=== PATIENT | male | born 1985 | race Caucasian/White ===

== ENCOUNTER 2019-10-30 12:56 | Inpatient (IN) ==
--- NOTE | 2019-10-30 14:01 | DR.FEVERAD ---
HPI Time seen Time Seen by Provider: 10/30/19 14:00 PCP Primary Care Physician: RADHA HPI Comment HPI Comment: HISTORY BELOW. Complaints/Symptoms Chief Complaint Doctor Comments: GENERALIZED WEAKNESS, HEADACHE AND FEVER TIMES ONE WEEK. CURRENTLY ON DOXYCYCLINE AND IS BEING CHECK FOR LYMES DISEASE. TODAY WEAK AND WORSE. 5.10 ACHING THROBBING PAIN.TOOK MEDICATION FOR FEVER BEFORE COMING. HE IS TIRED AND SLEEPY. Chief Complaint:: PT C/O WEAKNESS, FEVER, HEADACHE FOR APPROX 1 WEEK. PT STATES HE HAS BEEN BEING TREATED FOR LYME DISEASE, BUT HE IS NOT GETTING ANY BETTER. PT STATES ALL HE IS WANTING TO DO IS SLEEP HE HAS NOT ENERGY FOR ANYTHING. COVID-19 Coronavirus risk:travel/contact w/high risk person: No Has patient experienced Coronavirus symptoms: Yes Coronavirus symptoms experienced: Fever Source History Provided: Patient Mode of Arrival Mode of Arrival: Ambulatory Timing Onset of Chief Complaint: 10/23/19 Came on: Suddenly Duration Duration: Constant Duration: Days Severity Fever Severity/Quality: greater than 100.5 F Context Recent: Antibiotic Symptoms: Fever, Cough and SOB History of: None Modifying factors Modifying factors: Tylenol Associated signs and symptoms Associated signs and symptoms: Weakness, Myalgia and Headache PMH PMH Past Medical History: No Past Surgical History: No Family History History of Family Medical Conditions: No Social History Does patient currently use any type of tobacco product: Yes Have you used tobacco products in the last 12 months: Yes Type of Tobacco Use: Cigarettes Does any household member use tobacco: Yes Alcohol Use: Rarely Do you use any recreational Drugs:: No Lives With: Family Lives Where: Home Travel Risk Coronavirus risk:travel/contact w/high risk person: No Has patient experienced Coronavirus symptoms: Yes Coronavirus symptoms experienced: Fever Infectious screening In the last 2 months have you had wt loss of >10#?: NO Have you had fever, night sweats or hemotysis?: Yes Have you traveled outside the country in the last 6 months?: No Isolation: Droplet ROS Review of Systems Constitutional: See HPI, Diaphoresis, Fever, Weakness and Fatigue Eyes: No Symptoms Reported and See HPI; negative Blurred Vision ENTM: See HPI and Nose Congestion; negative Ear Pain, Nose Discharge and Throat Pain Respiratoy: Non-Productive Cough and Short of Breath; negative Wheezing Cardiovascular: No Symptoms Reported and See HPI; negative Chest Pain and Edema Gastrointestinal/Abdominal: No Symptoms Reported and See HPI; negative Abdominal Pain, Diarrhea and Vomiting Genitourinary: No Symptoms Reported; negative Dysuria, Frequency and Hematuria Neurological: Headache and Weakness; negative Dizziness Musculoskeletal: See HPI and Muscle Pain; negative Back Pain Integumentary: Dryness; negative Change in Color, Rash and Juandice Hematologic/Lymphatic: No Symptoms Reported and See HPI; negative Easy Bruising and Swollen Glands Endocrine: No Symptoms Reported and See HPI; negative Increased Thirst and Increased Urine Psychiatric: No Symptoms Reported and See HPI All Other Systems: Reviewed and Negative PE Vital Signs Vitals: Temperature 98.0 F Pulse Rate 83 Respiratory Rate 18 Blood Pressure 131/75 O2 Sat by Pulse Oximetry 97 General Limitations: No Limitations General Appearance: Alert and In Distress Head Head Exam: Normal Inspection and Atraumatic Eyes Eye exam: Normal Appearance, PERRL and EOMI; negative Scleral Icterus and Conjunctival Injection ENT ENT Exam: Normal Exam, Normal Oropharynx, Normal External Ear Exam and TM's Normal Bilaterally External Ear Exam: Normal External Inspection; negative Mastoid Tenderness TM/Canal Exam: Bilateral: Normal Nose Exam: negative Sinus Tenderness, Nasal Deviation and Septal Hematoma Mouth Exam: Lip Swelling and Tongue Swelling Teeth Exam: Dental Caries; negative Dental Tenderness # and Gingival Swelling Throat Exam: Normal Inspection and L Peritonsillar Mass; negative Tonsillar Erythema, Tonsillomegaly and Tonsillar Exudate Neck Neck Exam: Normal Inspection and Trachea Midline; negative Tenderness and Lymphadenopathy Respiratory Respiratory Exam: Normal Lung Sounds Bilat and Respiratory Distress; negative Accessory Muscle Use and Chest Wall Tenderness Respiratory Exam: Bilateral: Rhonchi and Lower: Rhonchi Cardiovascular Cardiovascular Exam: Regular Rate, Normal Rhythm and Normal Heart Sounds; negative Systolic Murmur and Diastolic Murmur Abdominal Exam Abdominal Exam: Normal Inspection and Soft; negative Tenderness Extremities Extremities Exam: Normal Inspection and Normal Capillary Refill; negative Tenderness, Edema and Calf Tenderness Back Back Exam: negative (R) CVA Tenderness and (L) CVA Tenderness Neurologic Neurological Exam: Alert, Oriented X3 and CN II-XII Intact; negative Motor Sensory Deficit Psychiatric Psychiatric Exam: Normal Mood; negative Normal Affect Skin Skin Exam: Dry MDM Differential Diagnosis Differential Diagnosis: CVA, Dehydration, Electrolyte disorder, Pneumonia, Pyelonephritis, UTI and Viral syndrome COURSE Treatment Treatment: SEE ORDERS. Consultation Consultation Comments: DISCUSSED PATIENT WITH DR. MORGAN. HE WILL ADMIT PATIENT. Education/Counseling Education/Counseling: Patient Educated On: Diagnosis ROR Labs Reviewed Laboratory Results Reviewed?: Yes Result Diagrams: 11/01/19 05:38 11/01/19 05:38 Laboratory: 10/30/19 15:30 Blood Blood Culture - Preliminary 10/30/19 15:15 Blood Blood Culture - Preliminary WBC 5.1 X10^3/uL (3.6-10.0) 10/30/19 14:30 RBC 4.56 X10^6/uL (4.7-6.0) L 10/30/19 14:30 Hgb 13.5 g/dL (13.5-18.0) 10/30/19 14:30 Hct 39.2 % (42.0-54.0) L 10/30/19 14:30 MCV 85.9 fL (80.0-100.0) 10/30/19 14:30 MCH 29.5 pg (27.0-34.0) 10/30/19 14:30 MCHC 34.3 g/dL (33.0-35.0) 10/30/19 14:30 RDW 13.9 % (11.6-16.5) 10/30/19 14:30 Plt Count 267 X10^3/uL (150.0-450.0) 10/30/19 14:30 MPV 7.0 fL (7.4-11.0) L 10/30/19 14:30 Neut % (Auto) 34.4 % (42.0-75.0) L 10/30/19 14:30 Lymph % (Auto) 56.2 % (21.0-51.0) H 10/30/19 14:30 [place] % (Auto) 7.8 % (0.0-13.0) 10/30/19 14:30 Eos % (Auto) 0.7 % (0.9-2.9) L 10/30/19 14:30 Baso % (Auto) 0.9 % (0.2-1.0) 10/30/19 14:30 Neut # (Auto) 1.7 x10^3/uL (2.2-4.8) L 10/30/19 14:30 Lymph # (Auto) 2.9 X10^3/uL (1.3-2.9) 10/30/19 14:30 [place] # (Auto) 0.4 x10^3/uL (0.3-0.8) 10/30/19 14:30 Eos # (Auto) 0.0 x10^3/uL (0.0-0.2) 10/30/19 14:30 Baso # (Auto) 0.0 X10^3/uL (0.0-0.1) 10/30/19 14:30 Absolute Nucleated RBC 0.3 /100WBC 10/30/19 14:30 Sample Site Lrad 10/30/19 15:45 ABG pH 7.440 (7.35-7.45) 10/30/19 15:45 ABG pCO2 42.0 mmHg (35.0-45.0) 10/30/19 15:45 ABG pO2 104.0 mmHg (80.0-100.0) H 10/30/19 15:45 ABG HCO3 28.5 mmol/L (22-26) H 10/30/19 15:45 ABG O2 Saturation 98.0 % (90-100) 10/30/19 15:45 ABG Base Excess 3.9 mmol/L (-2.0-2.0) H 10/30/19 15:45 Genaro Test Pos 10/30/19 15:45 A-a Gradient -7.0 mmHg 10/30/19 15:45 FiO2 21.0 10/30/19 15:45 Blood Gas Comments Pt maverick well elj 10/30/19 15:45 Sodium 139 mmol/L (136-145) 10/30/19 14:30 Corrected Sodium TNP 10/30/19 14:30 Potassium 3.9 mmol/L (3.5-5.1) 10/30/19 14:30 Chloride 101 mmol/L (98-107) 10/30/19 14:30 Carbon Dioxide 29.9 mmol/L (21-32) 10/30/19 14:30 BUN 8 mg/dL (7-18) 10/30/19 14:30 Creatinine 1.04 mg/dL (0.70-1.30) 10/30/19 14:30 Est GFR (MDRD) Af Amer > 60 (>60) 10/30/19 14:30 Est GFR (MDRD) Non-Af > 60 (>60) 10/30/19 14:30 Glucose 100 mg/dL (65-99) H 10/30/19 14:30 Lactic Acid 0.8 mmol/L (0.4-2.0) 10/30/19 15:15 Calcium 9.0 mg/dL (8.5-10.1) 10/30/19 14:30 Corrected Calcium TNP 10/30/19 14:30 Magnesium 2.1 mg/dL (1.7-2.9) 10/30/19 14:30 Total Bilirubin 1.20 mg/dL (0.2-1.0) H 10/30/19 14:30 AST 52 Units/L (15-37) H 10/30/19 14:30 ALT 96 Units/L (12-78) H 10/30/19 14:30 Alkaline Phosphatase 131 Units/L (46-116) H 10/30/19 14:30 Total Protein 8.7 g/dL (6.4-8.2) H 10/30/19 14:30 Albumin 4.3 g/dL (3.4-5.0) 10/30/19 14:30 Globulin 4.4 g/dL (2.5-4.5) 10/30/19 14:30 Albumin/Globulin Ratio 1.0 Ratio (1.1-2.1) L 10/30/19 14:30 RSV Nasal Swab Negative (NEGATIVE) 10/30/19 14:25 Influenza Type A Ag Negative-presumptive (NEGATIVE) 10/30/19 14:25 Influenza Type B Ag Negative-presumptive (NEGATIVE) 10/30/19 14:25 SARS-CoV-2 (PCR) Negative (NEGATIVE) 10/30/19 16:21 S. pyogenes (TEM-PCR) Not detected (NOT DETECT) 10/30/19 14:25 Miscellaneous Test Cancelled 10/30/19 14:25 XRAY XRAY Interpreted by: Radiologist (report noted and discussed with patient.) and Self Opioid Opioid Risk Tool Age (David box if 16-45): Yes History of Preadolescent Sexual Abuse: No Total: 1 Total Score Risk Category: Low Risk Copyright: [facility] predicting aberrant behaviors Diagnosis Discharge Problem: Fever, Headache Pneumonia Qualifiers: Pneumonia type: due to unspecified organism Laterality: bilateral Lung location: lower lobe of lung Qualified Code(s): J18.9 - Pneumonia, unspecified organism
[2019-10-30] MEDS ORDERED: NS 1000 ML 1,000 ML IV ONE (14:16)
[2019-10-30] MEDS ORDERED: NS 1000 ML 1,000 ML ONE (14:17)
--- NOTE | 2019-10-30 14:42 | RAD ---
CHEST, 1 VIEWHISTORY: Weakness, fever, headache.Study: Single view of the chest.Comparison:NoneFindings:The cardiomediastinal silhouette is normal.There may be some subtle interstitial and early airspace opacities involving the infrahilar regions bilaterally. Osseous structures demonstrate no acute abnormality.IMPRESSION:1. Probable subtle interstitial and early alveolar opacities in the bilateral perihilar/infrahilar regions. Acute atypical infection cannot be excluded.Electronically signed by: ADAM SCHROEDER (October 30, 2019 14:40:58)
[2019-10-30 14:48] LABS: BASOPHILS % (AUTO) 0.9 % (0.2-1.0); EOSINOPHILS % (AUTO) 0.7 % (0.9-2.9); HEMATOCRIT 39.2 % (42.0-54.0); HEMOGLOBIN 13.5 g/dL (13.5-18.0); LYMPHOCYTES # (AUTO) 2.9 X10^3/uL (1.3-2.9); LYMPHOCYTES % (AUTO) 56.2 % (21.0-51.0); MEAN CORPUSCULAR HEMOGLOBIN 29.5 pg (27.0-34.0); MEAN CORPUSCULAR HGB CONC 34.3 g/dL (33.0-35.0); MEAN CORPUSCULAR VOLUME 85.9 fL (80.0-100.0); MONOCYTES # (AUTO) 0.4 x10^3/uL (0.3-0.8); MONOCYTES % (AUTO) 7.8 % (0.0-13.0); NEUTROPHILS # (AUTO) 1.7 x10^3/uL (2.2-4.8); NEUTROPHILS % (AUTO) 34.4 % (42.0-75.0); PLATELET COUNT 267 X10^3/uL (150.0-450.0); RED BLOOD COUNT 4.56 X10^6/uL (4.7-6.0); RED CELL DISTRIBUTION WIDTH 13.9 % (11.6-16.5); WHITE BLOOD COUNT 5.1 X10^3/uL (3.6-10.0)
[2019-10-30 14:59] LABS: ALANINE AMINOTRANSFERASE 96 Units/L (12-78); ALBUMIN 4.3 g/dL (3.4-5.0); ALKALINE PHOSPHATASE 131 Units/L (46-116); ASPARTATE AMINO TRANSFERASE 52 Units/L (15-37); BLOOD UREA NITROGEN 8 mg/dL (7-18); CARBON DIOXIDE 29.9 mmol/L (21-32); CHLORIDE 101 mmol/L (98-107); CREATININE 1.04 mg/dL (0.70-1.30); SODIUM 139 mmol/L (136-145); TOTAL PROTEIN 8.7 g/dL (6.4-8.2); eGFR NON BLACK RACES > 60 (>60)
[2019-10-30] MEDS ORDERED: TORADOL 30 MG VIAL IVP ONE (15:01)
[2019-10-30 15:02] LABS: RSV AG DETECTION NEGATIVE (NEGATIVE)
[2019-10-30] MEDS ORDERED: ROCEPHIN VIAL 1 GRAM 1 G in NS 100 ML IV + SPIKE MINIBAG* 100 ML IV ONE (15:03)
[2019-10-30] MEDS ORDERED: TORADOL 30 MG VIAL ONE (15:32)
[2019-10-30] MEDS ORDERED: NS 100 ML IV + SPIKE MINIBAG* 100 ML IV ONE (15:32)
[2019-10-30] MEDS ORDERED: ROCEPHIN VIAL 1 GRAM ONE (15:33)
[2019-10-30 15:54] LABS: ABG BASE EXCESS 3.9 mmol/L (-2.0-2.0); ABG HCO3 28.5 mmol/L (22-26)
[2019-10-30 15:55] LABS: ABG ALLEN TEST POS
--- NOTE | 2019-10-30 16:01 | CT ---
HISTORYheadachesSTUDYCT brain without contrastCOMPARISONnoneTECHNIQUEMultiple axial images of the brain were obtained from the skull base to the vertex [without] administration of IV contrast.Dose reduction techniques including Automated Exposure Control (AEC) and adjustment of mA and kV were utlized.FINDINGS[No acute intraparenchymal hemorrhage or mass can be identified.] [No extra-axial fluid collections are seen.] [No alteration in the attenuation of the brain parenchyma can be identified to suggest acute or subacute ischemic change.] [The ventricular system is symmetric and nondilated.] [The extracranial structures are grossly unremarkable.]IMPRESSION[No acute intracranial process can be identified.]Electronically signed by: SONG PALMER (October 30, 2019 16:00:12)
[2019-10-30] MEDS ORDERED: TYLENOL 325 MG TAB PO PRN (16:40)
[2019-10-30] MEDS ORDERED: SALINE 3% 15 ML NEB TX NEB ONE (19:09)
[2019-10-30] MEDS ORDERED: TUSSIONEX PENNKINETIC SUSP PO PRN (19:24)
[2019-10-30] MEDS ORDERED: NS 1000 ML 1,000 ML IV SCH (19:24)
[2019-10-30] MEDS ORDERED: ASCORBIC ACID INJ MULTI-DOSE VIAL IV SCH (19:24)
[2019-10-30] MEDS ORDERED: PROVENTIL NEB TX 0.083% 2.5MG/ 3ML NEB PRN (19:29)
[2019-10-30] MEDS ORDERED: NS 1/2 1000 ML IV 1,000 ML IV ONE (19:41)
[2019-10-30 19:43] VITALS: BMI 29.1
[2019-10-30] MEDS: NS 1/2 1000 ML IV 1,000 ML IV SCH (19:46)
[2019-10-30] MEDS ORDERED: NS 100 ML IV 200 ML IV ONE (20:36)
[2019-10-30] MEDS: TORADOL 30 MG VIAL IVP PRN (20:43)
[2019-10-30] MEDS ORDERED: VENTOLIN or PROAIR HFA IN SCH (21:00)
[2019-10-30] MEDS: ROBITUSSIN DM PO SCH ×2 (21:01→21:02)
[2019-10-30] MEDS: THIAMINE HCL INJ IM SCH (21:02)
[2019-10-30] MEDS: ASCORBIC ACID INJ MULTI-DOSE VIAL 1,500 MG in NS 100 ML IV 100 ML IV SCH (21:02)
[2019-10-30] MEDS: PLAQUENIL PO SCH (21:03)
[2019-10-30] MEDS: ZINC SULFATE PO SCH (21:03)
[2019-10-30] MEDS: VIBRAMYCIN 100 MG in D5W 250 ML IV 250 ML IV SCH (21:40)
[2019-10-30 22:36] LABS: BILIRUBIN,URINE NEGATIVE (NEGATIVE); BLOOD/HEMOGLOBIN,URINE NEGATIVE (NEGATIVE); GLUCOSE, URINE NEGATIVE (NEGATIVE); KETONES,URINE NEGATIVE (NEGATIVE); LEUKOCYTE ESTERASE ,URINE NEGATIVE (NEGATIVE); NITRITES,URINE NEGATIVE (NEGATIVE); PROTEIN,URINE NEGATIVE (NEGATIVE); UROBILINOGEN,URINE NORMAL (NORMAL)
[2019-10-30 22:39] LABS: APPEARANCE,URINE CLEAR (CLEAR); COLOR,URINE YELLOW (YELLOW)
[2019-10-30] MEDS ORDERED: VISTARIL PO ONE (22:39)
[2019-10-30] MEDS: VISTARIL PO PRN (22:43)
[2019-10-31] MEDS: ASCORBIC ACID INJ MULTI-DOSE VIAL 1,500 MG in NS 100 ML IV 100 ML IV SCH ×4 (03:06→20:46)
[2019-10-31] MEDS: TORADOL 30 MG VIAL IVP PRN (03:06)
[2019-10-31] MEDS: PLAQUENIL PO SCH ×3 (05:47→20:59)
[2019-10-31 06:10] LABS: ALANINE AMINOTRANSFERASE 76 Units/L (12-78); ALBUMIN 3.2 g/dL (3.4-5.0); ALKALINE PHOSPHATASE 95 Units/L (46-116); ASPARTATE AMINO TRANSFERASE 44 Units/L (15-37); BLOOD UREA NITROGEN 6 mg/dL (7-18); CALCIUM 8.1 mg/dL (8.5-10.1); CARBON DIOXIDE 29.8 mmol/L (21-32); CHLORIDE 103 mmol/L (98-107); COR CA(FOR HYPOALB) 8.7 mg/dL (8.5-10.1); CREATININE 0.85 mg/dL (0.70-1.30); SODIUM 139 mmol/L (136-145); TOTAL PROTEIN 6.6 g/dL (6.4-8.2); eGFR NON BLACK RACES > 60 (>60)
[2019-10-31 06:17] LABS: BASOPHILS % (AUTO) 0.6 % (0.2-1.0); EOSINOPHILS # (AUTO) 0.1 x10^3/uL (0.0-0.2); EOSINOPHILS % (AUTO) 1.1 % (0.9-2.9); HEMATOCRIT 30.7 % (42.0-54.0); HEMOGLOBIN 10.7 g/dL (13.5-18.0); LYMPHOCYTES # (AUTO) 3.5 X10^3/uL (1.3-2.9); LYMPHOCYTES % (AUTO) 57.9 % (21.0-51.0); MEAN CORPUSCULAR HEMOGLOBIN 29.8 pg (27.0-34.0); MEAN CORPUSCULAR HGB CONC 34.8 g/dL (33.0-35.0); MEAN CORPUSCULAR VOLUME 85.6 fL (80.0-100.0); MEAN PLATELET VOLUME 7.1 fL (7.4-11.0); MONOCYTES # (AUTO) 0.6 x10^3/uL (0.3-0.8); MONOCYTES % (AUTO) 9.2 % (0.0-13.0); NEUTROPHILS # (AUTO) 1.9 x10^3/uL (2.2-4.8); NEUTROPHILS % (AUTO) 31.2 % (42.0-75.0); PLATELET COUNT 244 X10^3/uL (150.0-450.0); RED BLOOD COUNT 3.59 X10^6/uL (4.7-6.0)
[2019-10-31 07:11] LABS: PLATELET MORPHOLOGY COMMENT NORMAL (NORMAL)
[2019-10-31] MEDS: VISTARIL PO PRN ×2 (08:21→17:05)
[2019-10-31] MEDS: ROBITUSSIN DM PO SCH ×4 (08:41→20:48)
[2019-10-31] MEDS: VIBRAMYCIN 100 MG in D5W 250 ML IV 250 ML IV SCH ×2 (08:41→20:46)
[2019-10-31] MEDS: ZINC SULFATE PO SCH ×2 (08:42→20:48)
[2019-10-31] MEDS: VSL#3 PO SCH (08:42)
[2019-10-31] MEDS ORDERED: NS 1/2 1000 ML IV 1,000 ML IV ONE ×2 (09:34→20:04)
[2019-10-31] MEDS: THIAMINE HCL INJ IM SCH ×2 (10:14→20:55)
[2019-10-31] MEDS: NS 1/2 1000 ML IV 1,000 ML IV SCH ×3 (10:14→23:19)
[2019-10-31] MEDS ORDERED: TORADOL 30 MG VIAL ONE (10:21)
[2019-10-31] MEDS: TORADOL 30 MG VIAL IVP SCH ×2 (10:30→18:06)
[2019-10-31] MEDS: ZOFRAN INJ 4 MG VIAL IVP PRN ×2 (11:19→17:05)
--- NOTE | 2019-10-31 22:25 | DR.H&P ---
H&P - History & Physical for Day of: H&P Date: 10/30/19 - Chief Complaint Chief Complaint: WEAKNESS, FEVER, HEADACHE, DECREASED APPETITE, AND SHORTNESS OF BREATH - History of Present Illness History of Present Illness: IS A 34 YEAR OLD WHITE MALE. HE PRESENTED TO THE ER WITH COMPLAINTS OF WEAKNESS, FEVER, HEADACHE, DECREASED APPETITE, AND SHORTNESS OF BREATH FOR THE PAST WEEK. PATIENT REPORTS THAT HE PULLED A TICK OFF OF HIS LEG ABOUT A MONTH AGO. HE REPORTS THAT AREA OF THE BITE WAS RED, SWOLLEN, AND PAINFUL. HE SAW HIS PRIMARY CARE PHYSICIAN TWO DAYS AGO AND WAS PRESCRIBED DOXYCYCLINE 100MG PO BID FOR TREATMENT OF LYMES DISEASE. HE WAS NOT TESTED. HE DENIES A SIGNIFICANT MEDICAL HISTORY. ON ARRIVAL TO THE ER, VITALS WERE 98.0-83-18-97%-131/75. LABS WERE OBTAINED. ABNORMAL LAB VALUES INCLUDE THE FOLLOWING: RBC 4.56, HCT 39.2, GLUCOSE 100, TOTAL BILI 1.20, AST 52, ALT 96, ALK PHOS 131, TOTAL PROTEIN 8.7. AN ABG WAS OBTAINED AND REVEALED: PH 7.440, PC02 42.0, P02 104.0, HC03 28.5, 02 SATURATION 98.0, BASE EXCESS 3.9. URINALYSIS UNREMARKABLE. RSV NEGATIVE. INFLUENZA NEGATIVE, STREP NEGATIVE, COVID-19 NEGATIVE. BLOOD CULTURES WERE SET UP. A CHEST XRAY WAS OBTAINED AND REVEALED: Probable subtle interstitial and early alveolar opacities in the bilateral perihilar/infrahilar regions. Acute atypical infection cannot be excluded. A BRAIN CT WAS OBTAINED AND REVEALED: NO ACUTE INTRACRANIAL PROCESS. HE WAS GIVEN ROCEPHIN 1G IV, TORADOL 30MG IV X 1, AND A NORMAL SALINE 1 LITER BOLUS IN THE ER. HE WEAS ADMITTED FOR FURTHER EVALUATION AND TREATMENT OF LOWER LOBE PNEUMONIA, FEVER, HEADACHE, R/O LYMES DISEASE. HE WAS STARTED ON 1/2NS AT 75ML/HR, VITAMIN A 10,000 UNITS PO DAILY, THIAMINE 200MG IM BID, VITAMIN D3 5000UNITS PO DAILY, ZINC 220MG PO BID, NEB TX Q4H PRN, ROBITUSSIN DM 10ML PO QID, DOXYCYCLINE 100MG IV Q12H, PLAQUENIL 200MG PO TID, VISTARIL 25-50MG PO Q8H PRN AGITATION, AND TORADOL 30MG IV Q8H GUILHERME. TODAY, WE WILL OBTAIN A LYME TITER AND EHRLICHIA LEVELS. OTHERWISE, WE WILL FOLLOW UP WITH AM LABS AND CHEST XRAY AND CONTINUE TO MONITOR. - Past Surgical History Surgical History: No History - Social History Does patient currently use any type of tobacco product: Yes Have you used tobacco products in the last 12 months: Yes Type of Tobacco Use: Cigarettes Does any household member use tobacco: Yes Alcohol Use: Rarely Drug Use: None - Medications Home Medications: No Known Drug Allergies Allergy (Verified 10/30/19 12:57) CONTINUE taking the following medications doxycycline hyclate 100 mg PO BID 10/30/19 [History] - Review of Systems Constitutional: See HPI, Fever, Weakness, Malaise Eyes: No Symptoms Reported ENT: No Symptoms Reported Respiratory: See HPI, Shortness of Breath Cardiovascular: No Symptoms Reported Gastrointestinal: No Symptoms Reported Genitourinary: No Symptoms Reported Musculoskeletal: No Symptoms Reported Skin: No Symptoms Reported Neurological: See HPI, Weakness, Other (HEADACHE ) - Physical Exam Vital Signs: Temperature 98.2 F Pulse Rate [Left Brachial] 85 Pulse Rate 93 Respiratory Rate 20 Blood Pressure [Left Arm] 135/73 Blood Pressure 131/75 O2 Sat by Pulse Oximetry 99 Oriented: Normal Eyes: Normal Ear: Normal Nose: Normal Throat: Normal Respiratory: Diminished Throughout Cardiovascular: Normal. negative: S3, S4, Murmur : Normal Auscultation: Bowel Sounds: Normal Palpation: Normal Tenderness: Normal Skin: Normal Musculoskeletal: Normal Psychiatric: Normal Mood Description: Calm Affect: Normal Speech Pattern: Clear - Assessment/Plan (1) Lower lobe pneumonia Qualifiers: Pneumonia type: due to unspecified organism Laterality: bilateral Qualified Code(s): J18.9 - Pneumonia, unspecified organism Status: Acute Plan: ADMIT, 1/2NS AT 75ML/HR, VITAMIN A 10,000 UNITS PO DAILY, THIAMINE 200MG IM BID, VITAMIN D3 5000UNITS PO DAILY, ZINC 220MG PO BID, NEB TX Q4H PRN, ROBITUSSIN DM 10ML PO QID, DOXYCYCLINE 100MG IV Q12H, PLAQUENIL 200MG PO TID, VISTARIL 25-50MG PO Q8H PRN AGITATION, AND TORADOL 30MG IV Q8H GUILHERME. (2) Generalized weakness Status: Acute (3) Headache Qualifiers: Headache type: unspecified Headache chronicity pattern: acute headache Intractability: intractable Qualified Code(s): R51 - Headache Status: Acute (4) Fever Qualifiers: Fever type: unspecified Qualified Code(s): R50.9 - Fever, unspecified Status: Acute - Allergies Allergies/Adverse Reactions: Allergies Allergy/AdvReac Type Severity Reaction Status Date / Time No Known Drug Allergies Allergy Verified 10/30/19 12:57
[2019-11-01] MEDS: ASCORBIC ACID INJ MULTI-DOSE VIAL 1,500 MG in NS 100 ML IV 100 ML IV SCH (03:24)
[2019-11-01] MEDS: TORADOL 30 MG VIAL IVP SCH ×3 (03:24→18:26)
[2019-11-01] MEDS: PLAQUENIL PO SCH (05:49)
--- NOTE | 2019-11-01 05:49 | RAD ---
STUDY: FRONTAL VIEW CHESTCOMPARISON: October 30, 2019HISTORY: SOBFINDINGS:No focal consolidation is seen.The heart size is within normal limits.The mediastinum is unremarkable.There is no evidence of pleural effusion or gross pneumothorax.The trachea is midline.IMPRESSION:1. No focal consolidation is seen.2. The heart size is normal.Electronically signed by: Elder Hester (November 01, 2019 05:48:11)
[2019-11-01 06:31] LABS: BASOPHILS % (AUTO) 0.7 % (0.2-1.0); EOSINOPHILS # (AUTO) 0.1 x10^3/uL (0.0-0.2); EOSINOPHILS % (AUTO) 1.2 % (0.9-2.9); HEMOGLOBIN 11.1 g/dL (13.5-18.0); LYMPHOCYTES # (AUTO) 3.6 X10^3/uL (1.3-2.9); LYMPHOCYTES % (AUTO) 62.3 % (21.0-51.0); MEAN CORPUSCULAR HEMOGLOBIN 29.5 pg (27.0-34.0); MEAN CORPUSCULAR HGB CONC 34.8 g/dL (33.0-35.0); MEAN CORPUSCULAR VOLUME 84.7 fL (80.0-100.0); MEAN PLATELET VOLUME 6.8 fL (7.4-11.0); MONOCYTES # (AUTO) 0.4 x10^3/uL (0.3-0.8); MONOCYTES % (AUTO) 6.8 % (0.0-13.0); NEUTROPHILS # (AUTO) 1.7 x10^3/uL (2.2-4.8); PLATELET COUNT 263 X10^3/uL (150.0-450.0); RED BLOOD COUNT 3.78 X10^6/uL (4.7-6.0); RED CELL DISTRIBUTION WIDTH 13.8 % (11.6-16.5); WHITE BLOOD COUNT 5.7 X10^3/uL (3.6-10.0)
[2019-11-01 06:50] LABS: ALANINE AMINOTRANSFERASE 98 Units/L (12-78); ALBUMIN 3.2 g/dL (3.4-5.0); ALKALINE PHOSPHATASE 112 Units/L (46-116); ASPARTATE AMINO TRANSFERASE 57 Units/L (15-37); BLOOD UREA NITROGEN 8 mg/dL (7-18); CALCIUM 8.3 mg/dL (8.5-10.1); CHLORIDE 104 mmol/L (98-107); COR CA(FOR HYPOALB) 8.9 mg/dL (8.5-10.1); CREATININE 0.96 mg/dL (0.70-1.30); SODIUM 139 mmol/L (136-145); TOTAL PROTEIN 6.8 g/dL (6.4-8.2); eGFR NON BLACK RACES > 60 (>60)
[2019-11-01 07:19] LABS: BAND NEUTROPHILS % 2 % (0-10); PLATELET MORPHOLOGY COMMENT NORMAL (NORMAL)
[2019-11-01] MEDS ORDERED: VITAMIN A PO SCH (09:00)
[2019-11-01] MEDS ORDERED: VITAMIN D3 25 mcg (1,000 UNITS) PO SCH (09:00)
[2019-11-01] MEDS: ZINC SULFATE PO SCH ×2 (09:21→21:00)
[2019-11-01] MEDS: ROBITUSSIN DM PO SCH ×4 (09:21→21:00)
[2019-11-01] MEDS: VSL#3 PO SCH (09:21)
[2019-11-01] MEDS: VIBRAMYCIN 100 MG in D5W 250 ML IV 250 ML IV SCH ×2 (09:22→21:00)
[2019-11-01] MEDS: ZOFRAN INJ 4 MG VIAL IVP PRN (10:20)
[2019-11-01] MEDS: VISTARIL PO PRN ×2 (10:20→21:00)
[2019-11-01] MEDS: NS 1/2 1000 ML IV 1,000 ML IV SCH (16:30)
[2019-11-01] MEDS ORDERED: NS 1/2 1000 ML IV 1,000 ML IV ONE (16:36)
[2019-11-01] MEDS ORDERED: AMBIEN PO PRN (20:58)
--- NOTE | 2019-11-01 22:45 | PCM.PROG ---
Progress Note - Progress Note for Day of Date of Exam: 11/01/19 - Subjective Subjective: IS BEING TREATED FOR LOWER LOBE PNEUMONIA, GENERALIZED WEAKNESS, FEVER, AND TO RULE OUT LYMES DISEASE. TODAY, HE IS LYING IN BED WITH EYES CLOSED ON MORNING ROUNDS. HE AWAKENS EASILY TO VERBAL STIMULI. HE CONTINUES WITH COMPLAINTS OF FEVER, SHORTNESS OF BREATH, AND WEAKNESS TODAY. ON E XAMINATION, HEART IS REGULAR IN RATE AND RHYTHM. BILATERAL LUNGS ARE NOTED WITH DIMINISHED LUNG SOUNDS IN ALL QUADRANTS. HIS VITALS THIS MORNING ARE: 98.1-72-18-100%-118/63. LABS WERE OBTAINED. ABNORMAL LAB VALUES INCLUDE THE FOLLOWING: RBC 3.78, HGB 11.1, HCT 32.0, GLUCOSE 101, CALCIUM 8.3, AST 57, ALT 98, ALBUMIN 3.2. BLOOD CULTURES ARE PENDING. LYME TITERS ARE PENDING. A CHEST XRAY WAS OBTAINED THIS MORNING AND REVEALED: 1. No focal consolidation is seen. 2. The heart size is normal. WE WILL CONTINUE HIS IV FLUIDS, ANTIBIOTICS, AND CURRENT PLAN OF CARE TODAY. OTHERWISE, WE PLAN TO FOLLOW UP WITH AM LABS AND CONTINUE TO MONITOR. - Past Medical Family Social History Past Med/Fam/Surg Hx: No changes since H&P Allergies: Allergies No Known Drug Allergies Allergy (Verified 10/30/19 12:57) - Review of Systems ROS: No change since H&P - Vital Signs and I&O's Vital Signs: Temperature 98.6 F Pulse Rate [Right Brachial] 85 Pulse Rate [Left Brachial] 92 Pulse Rate 93 Respiratory Rate 16 Blood Pressure [Right Arm] 129/73 Blood Pressure [Left Arm] 123/73 Blood Pressure 131/75 O2 Sat by Pulse Oximetry 100 Intake and Output: Intake & Output 10/30/19 10/31/19 11/01/19 11/02/19 11:59 11:59 11:59 11:59 Intake Total 1050 / 1050 1974 360 / 360 Balance 1050 / 1050 1974 360 / 360 - Physical Exam Oriented: Normal Eyes: Normal Ear: Normal Nose: Normal Throat: Normal Respiratory: Generalized, Diminished Cardiovascular: Normal. negative: S3, S4, Murmur : Normal Auscultation: Bowel Sounds: Normal Palpation: Normal Tenderness: Normal Skin: Normal Musculoskeletal: Normal Psychiatric: Normal Mood Description: Calm Affect: Normal Speech Pattern: Clear, Appropriate - Laboratory and Diagnostics Result Diagrams: 11/01/19 05:38 11/01/19 05:38 Labs: 10/30/19 15:30 Blood Blood Culture - Preliminary 10/30/19 15:15 Blood Blood Culture - Preliminary Laboratory WBC 5.7 X10^3/uL (3.6-10.0) 11/01/19 05:38 RBC 3.78 X10^6/uL (4.7-6.0) L 11/01/19 05:38 Hgb 11.1 g/dL (13.5-18.0) L 11/01/19 05:38 Hct 32.0 % (42.0-54.0) L 11/01/19 05:38 MCV 84.7 fL (80.0-100.0) 11/01/19 05:38 MCH 29.5 pg (27.0-34.0) 11/01/19 05:38 MCHC 34.8 g/dL (33.0-35.0) 11/01/19 05:38 RDW 13.8 % (11.6-16.5) 11/01/19 05:38 Plt Count 263 X10^3/uL (150.0-450.0) 11/01/19 05:38 Plt Count Comment Adequate (ADEQUATE) 11/01/19 05:38 MPV 6.8 fL (7.4-11.0) L 11/01/19 05:38 Neut % (Auto) 29.0 % (42.0-75.0) L 11/01/19 05:38 Lymph % (Auto) 62.3 % (21.0-51.0) H 11/01/19 05:38 [place] % (Auto) 6.8 % (0.0-13.0) 11/01/19 05:38 Eos % (Auto) 1.2 % (0.9-2.9) 11/01/19 05:38 Baso % (Auto) 0.7 % (0.2-1.0) 11/01/19 05:38 Neut # (Auto) 1.7 x10^3/uL (2.2-4.8) L 11/01/19 05:38 Lymph # (Auto) 3.6 X10^3/uL (1.3-2.9) H 11/01/19 05:38 [place] # (Auto) 0.4 x10^3/uL (0.3-0.8) 11/01/19 05:38 Eos # (Auto) 0.1 x10^3/uL (0.0-0.2) 11/01/19 05:38 Baso # (Auto) 0.0 X10^3/uL (0.0-0.1) 11/01/19 05:38 Absolute Nucleated RBC 0.1 /100WBC 11/01/19 05:38 Total Counted 100 11/01/19 05:38 Neutrophils % (Manual) 40 % (39-76) 11/01/19 05:38 Band Neutrophils % 2 % (0-10) 11/01/19 05:38 Lymphocytes % (Manual) 50 % (13-43) H 11/01/19 05:38 Monocytes % (Manual) 6 % (4-9) 11/01/19 05:38 Eosinophils % (Manual) 2 % (0-6) 11/01/19 05:38 Atypical Lymphocytes Noted 11/01/19 05:38 Plt Morphology Comment Normal (NORMAL) 11/01/19 05:38 RBC Morphology Normal (NORMAL) 11/01/19 05:38 ESR 27 MM/HOUR (0-15) H 10/31/19 05:24 Sample Site Lrad 10/30/19 15:45 ABG pH 7.440 (7.35-7.45) 10/30/19 15:45 ABG pCO2 42.0 mmHg (35.0-45.0) 10/30/19 15:45 ABG pO2 104.0 mmHg (80.0-100.0) H 10/30/19 15:45 ABG HCO3 28.5 mmol/L (22-26) H 10/30/19 15:45 ABG O2 Saturation 98.0 % (90-100) 10/30/19 15:45 ABG Base Excess 3.9 mmol/L (-2.0-2.0) H 10/30/19 15:45 Genaro Test Pos 10/30/19 15:45 A-a Gradient -7.0 mmHg 10/30/19 15:45 FiO2 21.0 10/30/19 15:45 Blood Gas Comments Pt maverick well elj 10/30/19 15:45 Sodium 139 mmol/L (136-145) 11/01/19 05:38 Corrected Sodium TNP 11/01/19 05:38 Potassium 3.7 mmol/L (3.5-5.1) 11/01/19 05:38 Chloride 104 mmol/L (98-107) 11/01/19 05:38 Carbon Dioxide 27.0 mmol/L (21-32) 11/01/19 05:38 BUN 8 mg/dL (7-18) 11/01/19 05:38 Creatinine 0.96 mg/dL (0.70-1.30) 11/01/19 05:38 Est GFR (MDRD) Af Amer > 60 (>60) 11/01/19 05:38 Est GFR (MDRD) Non-Af > 60 (>60) 11/01/19 05:38 Glucose 101 mg/dL (65-99) H 11/01/19 05:38 Lactic Acid 0.8 mmol/L (0.4-2.0) 10/30/19 15:15 Calcium 8.3 mg/dL (8.5-10.1) L 11/01/19 05:38 Corrected Calcium 8.9 mg/dL (8.5-10.1) 11/01/19 05:38 Magnesium 2.1 mg/dL (1.7-2.9) 10/30/19 14:30 Total Bilirubin 0.90 mg/dL (0.2-1.0) 11/01/19 05:38 AST 57 Units/L (15-37) H 11/01/19 05:38 ALT 98 Units/L (12-78) H 11/01/19 05:38 Alkaline Phosphatase 112 Units/L (46-116) 11/01/19 05:38 C-Reactive Protein 11.60 mg/L (0-3.0) H 10/31/19 05:24 Total Protein 6.8 g/dL (6.4-8.2) 11/01/19 05:38 Albumin 3.2 g/dL (3.4-5.0) L 11/01/19 05:38 Globulin 3.6 g/dL (2.5-4.5) 11/01/19 05:38 Albumin/Globulin Ratio 0.9 Ratio (1.1-2.1) L 11/01/19 05:38 Specimen Type Clean catch urine 10/30/19 22:06 Urine Color Yellow (YELLOW) 10/30/19 22:06 Urine Appearance Clear (CLEAR) 10/30/19 22:06 Urine pH 7.0 (5.0 - 8.0) 10/30/19 22:06 Ur Specific [place] 1.015 (1.000-1.030) 10/30/19 22:06 Urine Protein Negative (NEGATIVE) 10/30/19 22:06 Urine Glucose (UA) Negative (NEGATIVE) 10/30/19 22:06 Urine Ketones Negative (NEGATIVE) 10/30/19 22:06 Urine Occult Blood Negative (NEGATIVE) 10/30/19 22:06 Urine Nitrite Negative (NEGATIVE) 10/30/19 22:06 Urine Bilirubin Negative (NEGATIVE) 10/30/19 22:06 Urine Urobilinogen Normal (NORMAL) 10/30/19 22:06 Ur Leukocyte Esterase Negative (NEGATIVE) 10/30/19 22:06 RSV Nasal Swab Negative (NEGATIVE) 10/30/19 14:25 Influenza Type A Ag Negative-presumptive (NEGATIVE) 10/30/19 14:25 Influenza Type B Ag Negative-presumptive (NEGATIVE) 10/30/19 14:25 SARS-CoV-2 (PCR) Negative (NEGATIVE) 10/30/19 16:21 S. pyogenes (TEM-PCR) Not detected (NOT DETECT) 10/30/19 14:25 Miscellaneous Test Cancelled 10/31/19 05:24 - Plan (1) Lower lobe pneumonia Status: Acute Qualifiers: Pneumonia type: due to unspecified organism Laterality: bilateral Qualified Code(s): J18.9 - Pneumonia, unspecified organism Plan: ADMIT, 1/2NS AT 75ML/HR, VITAMIN A 10,000 UNITS PO DAILY, THIAMINE 200MG IM BID, VITAMIN D3 5000UNITS PO DAILY, ZINC 220MG PO BID, NEB TX Q4H PRN, ROBITUSSIN DM 10ML PO QID, DOXYCYCLINE 100MG IV Q12H, PLAQUENIL 200MG PO TID, VISTARIL 25-50MG PO Q8H PRN AGITATION, AND TORADOL 30MG IV Q8H GUILHERME. (2) Generalized weakness Status: Acute (3) Headache Status: Acute Qualifiers: Headache type: unspecified Headache chronicity pattern: acute headache Intractability: intractable Qualified Code(s): R51 - Headache (4) Fever Status: Acute Qualifiers: Fever type: unspecified Qualified Code(s): R50.9 - Fever, unspecified
[2019-11-02] MEDS ORDERED: NS 1/2 1000 ML IV 1,000 ML IV ONE (03:41)
[2019-11-02] MEDS: NS 1/2 1000 ML IV 1,000 ML IV SCH (03:45)
[2019-11-02] MEDS: TORADOL 30 MG VIAL IVP SCH (03:45)
[2019-11-02] MEDS: VISTARIL PO PRN (04:32)
[2019-11-02 05:30] LABS: BASOPHILS % (AUTO) 0.5 % (0.2-1.0); EOSINOPHILS # (AUTO) 0.1 x10^3/uL (0.0-0.2); EOSINOPHILS % (AUTO) 2.1 % (0.9-2.9); HEMATOCRIT 33.2 % (42.0-54.0); HEMOGLOBIN 11.4 g/dL (13.5-18.0); LYMPHOCYTES # (AUTO) 4.1 X10^3/uL (1.3-2.9); LYMPHOCYTES % (AUTO) 62.8 % (21.0-51.0); MEAN CORPUSCULAR HEMOGLOBIN 29.3 pg (27.0-34.0); MEAN CORPUSCULAR HGB CONC 34.3 g/dL (33.0-35.0); MEAN CORPUSCULAR VOLUME 85.3 fL (80.0-100.0); MEAN PLATELET VOLUME 6.7 fL (7.4-11.0); MONOCYTES # (AUTO) 0.6 x10^3/uL (0.3-0.8); MONOCYTES % (AUTO) 8.9 % (0.0-13.0); NEUTROPHILS # (AUTO) 1.7 x10^3/uL (2.2-4.8); NEUTROPHILS % (AUTO) 25.7 % (42.0-75.0); PLATELET COUNT 290 X10^3/uL (150.0-450.0); RED BLOOD COUNT 3.89 X10^6/uL (4.7-6.0); WHITE BLOOD COUNT 6.6 X10^3/uL (3.6-10.0)
[2019-11-02 05:38] LABS: ALANINE AMINOTRANSFERASE 102 Units/L (12-78); ALBUMIN 3.6 g/dL (3.4-5.0); ALKALINE PHOSPHATASE 117 Units/L (46-116); ASPARTATE AMINO TRANSFERASE 51 Units/L (15-37); BLOOD UREA NITROGEN 7 mg/dL (7-18); CALCIUM 8.5 mg/dL (8.5-10.1); CHLORIDE 103 mmol/L (98-107); SODIUM 140 mmol/L (136-145); TOTAL PROTEIN 7.3 g/dL (6.4-8.2); eGFR NON BLACK RACES > 60 (>60)
[2019-11-02 06:11] LABS: BASOPHILS % (MANUAL) 2 % (0-1); PLATELET MORPHOLOGY COMMENT NORMAL (NORMAL)
--- NOTE | 2019-11-02 06:14 | RAD ---
HISTORYShortness of breathSTUDYCHEST, 1 [id number] heart is within normal limits in size. The charles are normal. The lungs are well inflated and free of acute infiltrates. No pleural effusions are identified. Bony thorax is unremarkable.IMPRESSIONNo significant abnormality identifiedElectronically signed by: KEEGAN MONTALVO (November 02, 2019 06:13:14)
[2019-11-02] MEDS: ZINC SULFATE PO SCH (08:49)
[2019-11-02] MEDS: VIBRAMYCIN 100 MG in D5W 250 ML IV 250 ML IV SCH (08:49)
[2019-11-02] MEDS: VSL#3 PO SCH (08:49)
[2019-11-02] MEDS: ROBITUSSIN DM PO SCH (08:50)
[2019-11-02 12:30] VITALS: BP 127/67
== END 2019-11-02 12:24 | disposition home or self-care (01) | DRG 194 ==
LOC: ER 12:56 → MED/SURG 16:37
PROVIDERS: ADMIT Internal Medicine; ATTEND Internal Medicine
DX: J18.8 Other pneumonia, unspecified organism; R06.02 Shortness of breath; Z11.59 Encounter for screening for other viral diseases; R50.9 Fever, unspecified; R51 Headache; R26.89 Other abnormalities of gait and mobility; R53.1 Weakness; A69.20 Lyme disease, unspecified
CPT/HCPCS: 36415; 36600; 70450; 71010; 71045; 80053; 81003; 82803; 83605; 83735; 85025; 85652; 86140; 86618; 86757; 87040; 87400; 87420; 87476; 87635; 87651; 87804; 94640; 94760; 96365; 96374; 96375; 97116; 97162; 99284; A4222; J0696; J1885; J2405; J3411; J3490; J7030; J7050; J7060; Q0177